=== PATIENT | female | born 1970 ===

== ENCOUNTER 2021-12-23 12:30 | Emergency (ER) | payer OTHER ==
[~2021-12-23] VITALS: Ht 165.1 cm; Wt 59.0 kg
[2021-12-23] MEDS ORDERED: BARACLUDE0.5 MG PO (13:10)
== END 2021-12-23 18:07 | disposition home or self-care (01) ==
LOC: ER 12:30
DX: R07.89 Other chest pain (principal); M75.82 Other shoulder lesions, left shoulder